=== PATIENT | male | born 1975 | race Caucasian/White ===

== ENCOUNTER 2016-07-09 09:54 | Emergency (ER) | payer OTHER ==
[~2016-07-09] VITALS: Ht 172.7 cm; Wt 160.0 kg
[~2016-07-09 09:54] MED LIST: AEROMIS4 INH; ALBU8I INH; ZITH250T PO
[2016-07-09 10:01] VITALS: BP 158/113; PULSE 81; RESP 20; TEMP 98.8; O2SAT 96
--- NOTE | 2016-07-09 10:38 | PD ---
HPI Chief Complaint: ENT Complaint Time Seen by Provider: 10:31 Travel History International Travel<30 days: No Contact w/Intl Traveler<30days: No Traveled to known affect area: No History of Present Illness HPI 40-year-old male with history of no significant past medical issues, presents to the ER today because he states he has had 3 weeks' history of feeling like his right ear is clogged, decreased hearing, and had been seen by urgent care twice and diagnosed with otitis media twice, was given amoxicillin and Zithromax with no improvement. He denies any ear pain, fevers, sore throat, or any other symptoms. He states that his hearing did improve a little bit after the Zithromax but he states that he is still having decreased hearing on the right. Modifying Factors: None Associated Signs & Symptoms: Discomfort in the right ear, decreased hearing, treated for otitis media twice in the past 3 weeks Risk Factors: None History Past Medical Histgory Medical History: Denies Significant Hx Tetanus Vaccination: < 5 Years Social History Alcohol Use: Yes (Occ.) Tobacco Use: No Allergies-Medications (Allergen,Severity, Reaction): Coded Allergies: No Known Allergies (Unverified , 07/09/16) Reported Meds & Prescriptions Reported Meds & Active Scripts Active No Active Prescriptions or Reported Medications Review of Systems Except as stated in HPI: all other systems reviewed are Neg Physical Exam Narrative GENERAL: Well-nourished, well-developed obese middle age white male patient in no acute distress. SKIN: Warm and dry. HEAD: Normocephalic. EYES: No scleral icterus. No injection or drainage. EARS: Bilateral pinnae appear within normal limits. Left tympanic membranes without erythema, dullness or perforation. The right canal appears mildly erythematous with tympanic membrane on the right showing small amount of cloudy fluid in the right ear, no significant dullness or perforation. No tenderness on palpation of the tragus. ENT: Mucosa pink and moist. No erythema or exudates. No uvular edema. No uvular , palatal, or tonsillar deviation. Airway patent. NECK: Supple, trachea midline. No JVD or lymphadenopathy. CARDIOVASCULAR: Regular rate and rhythm without murmurs, gallops, or rubs. RESPIRATORY: Breath sounds equal bilaterally. No accessory muscle use. GASTROINTESTINAL: Abdomen soft, non-tender, nondistended. MUSCULOSKELETAL: No cyanosis, or edema. BACK: Nontender without obvious deformity. No CVA tenderness. Data Data Last Documented VS Vital Signs Date Time Temp Pulse Resp B/P Pulse Ox O2 Delivery O2 Flow Rate FiO2 07/09/16 10:01 98.8 81 20 158/113 96 Room Air [facility] Medical Screen Exam Complete: Yes Emergency Medical Condition: Yes Differential Diagnosis Otitis media versus otitis externa versus cerumen impaction Narrative Course Patient does not have definitive signs of otitis externa. He has no tenderness on palpation of the trach is or movement of the outer ear. He has not been swimming or using any ear plugs. He has had 2 antibiotic treatment for middle ear infection without significant improvement in cloudiness. He states that other than the hearing, he is fairly symptom-free. At this point, considering all to put antibiotic treatments already, and no improvements, I am considering that this may be more of a chronic issue and that the patient may need to see an ENT for further evaluation of his ears. He is running no fevers and there are no signs of acute issues at this time. Medical screening exam was done on this patient and I do not see any current acute medical issues. Patient has more of a chronic issue at this point. Should he has any worsening in symptoms, he should return to the ER and be evaluated further. He should follow-up with primary care physician and ENT regarding chronic issue. The findings were explained to the patient he states understanding. Primary Impression: Chronic otitis media of right ear Scripts No Active Prescriptions or Reported Meds Disposition: [facility]GO-ED USE ONLY Condition: Stable Alexandro Baldwin MD Jul 09, 2016 10:38
== END 2016-07-09 10:37 | disposition left against medical advice (07) ==
LOC: PHED 09:54
DX: H66.91 Otitis media, unspecified, right ear (principal)
CPT/HCPCS: 99282